=== PATIENT | male | born 1965 | race Caucasian/White ===

== ENCOUNTER 2024-07-22 18:04 | Inpatient (IN) | payer MEDICAID, OTHER ==
[~2024-07-22] VITALS: Ht 185.4 cm; Wt 113.2 kg
--- NOTE | 2024-07-22 18:42 | ED.PDOC ---
GI ASSESSMENT HPI Comments 59y M who presents to the ED for chief complaint of abdominal pain. Pt states he has been having suprapubic abdominal pain since 0300 this AM. Pt states the pain is intermittent, rating the pain 3/10, non-radiating, with no associated exacerbating or relieving factors. Pt has associated nausea but otherwise denies vomiting, diarrhea, fever, cough, chills, dysuria, hematuria, chest pain, headache or dizziness. Pt states he did eat half dozen box of donuts earlier this AM but otherwise denies any recent diet changes or sick contacts. Pt otherwise denies any other symptoms at this time. Time Seen by MD: 18:38 Reviewed Notes: Nurses Notes, Medications, Allergies Allergies: Coded Allergies: NO KNOWN ALLERGIES (Unverified , 07/22/24) Information Source: Patient Mode of Arrival: Ambulatory Brought in by: self Timing: Hours Duration: Since onset Prehospital treatment: None Quality: Sharp Vomitus: None Stool: Normal Severity: Moderate Recent: None Recent Hx of: None Pain Location: Suprapubic Modifying Factors: Food Associated sign and symptoms: Nausea, Abdominal Pain Past Medical History PAST MEDICAL HISTORY: HTN Surgical History: Tonsillectomy Surgical History (Other): R femur Family History Family History: Reviewed,noncontributory to illness Social History Smoker: Non-Smoker Alcohol: Occasionally Drugs: Denies Drug Use Lives In: Home Constitutional: denies: chills, diaphoresis, fatigue, fever, malaise, sweats, weakness, others EENTM: denies: blurred vision, double vision, ear bleeding, ear discharge, ear drainage, ear pain, ear ringing, eye pain, eye redness, hearing loss, mouth pa in, mouth swelling, nasal discharge, nose bleeding, nose congestion, nose pain, photophobia, tearing, throat pain, throat swelling, voice changes, others Respiratory: denies: cough, hemoptysis, orthopnea, SOB at rest, shortness of breath, SOB with excertion, stridor, wheezing, others Cardiovascular: denies: chest pain, dizzy spells, diaphoresis, Dyspnea on exertion, edema, irregular heart beat, left arm pain, lightheadedness, palpitations, PND, syncope, others Gastrointestinal: reports: abdominal pain, nausea; denies: abdomen distended, blood streaked bowels, constipated, diarrhea, dysphagia, difficulty swallowing, hematemesis, melena, poor appetite, poor fluid intake, rectal bleeding, rectal pain, vomiting, others Genitourinary: denies: burning, dysuria, flank pain, frequency, hematuria, incontinence, penile discharge, penile sore, pain, testicle pain, testicle swelling, urgency, others Neurological: denies: dizziness, fainting, headache, left sided numbness, left sided weakness, numbness, paresthesia, pre-existing deficit, right sided numbness, right sided weakness, seizure, speech problems, tingling, tremors, weakness, others Musculoskeletal: denies: back pain, gout, joint pain, joint swelling, muscle pain, muscle stiffness, neck pain, others Integumetry: denies: bruises, change in color, change in hair/nails, dryness, laceration, lesions, lumps, rash, wounds, others Allergic/Immunocompromised: denies: Difficulty Healing, Frequent Infections, Hives, Itching, others Hematologic/Lymphatic: denies: anemia, blood clots, easy bleeding, easy bruising, swollen glands, others Endocrine: denies: excessive hunger, excessive sweating, excessive thirst, excessive urination, flushing, intolerance to cold, intolerance to heat, unexplained weight gain, unexplained weight loss, others Psychiatric: denies: anxiety, bipolar disorder, depression, hopeless, panic disorder, schizophrenia, sleepless, suicidal, others All Other Systems: Reviewed and Negative Physical Exam General Appearance: Moderate Distress HEENT: Normal ENT Inspection, Pharynx Normal, TMs Normal Neck: Full Range of Motion, Non-Tender, Normal, Normal Inspection Respiratory: Chest Non-Tender, Lungs Clear, No Accessory Muscle Use, No Respiratory Distress, Normal Breath Sounds Cardiovascular: No Edema, No JVD, No Murmur, No Gallop, Normal Peripheral Pulses, Regular Rate/Rhythm Breast Exam: Deferred Gastrointestinal: LLQ, No Organomegaly, No Pulsatile Mass, Normal Bowel Sounds, Soft, Suprapubic, Tenderness Genitalia: Deferred Pelvic: Deferred Rectal: Deferred Extremities: No calf tenderness, Normal capillary refill, Normal inspection, Normal range of motion, Non-tender, No pedal edema Musculoskeletal : Apperance: Normal Neurologic: Alert, field contact person II-XII nml as Tested, No Motor Deficits, Normal Affect, Normal Mood, No Sensory Deficits Cerebellar Function: Normal Reflexes: Normal Skin: Dry, Normal Color, Warm Lymphatic: No Adenopathy Was a procedure done? Was a procedure done?: No GI differential Dx Differential Diagnosis: Cholecystitis, Gastritis/PUD, Gastroenteritis, Pancreatitis, Electrolyte Imbalance, Food Poisoning, Bacterial, Viral Other Differential Diagnosis colitis, hepatic steatosis X-Ray, Labs, Meds, VS Vital Signs Date Time Temp Pulse Resp B/P (MAP) Pulse Ox O2 Delivery O2 Flow Rate FiO2 07/22/24 21:21 102 20 155/101 07/22/24 21:15 98.0 102 20 155/101 (119) 97 98.0 07/22/24 21:15 Room Air* 0 21 07/22/24 18:37 98.8 116 18 160/101 (120) 96 98.8 Lab Test 07/22/24 18:56 Range/Units White Blood Count 13.3 H 4.4-10.8 10^3/uL Red Blood Count 4.94 4.5-5.90 10^6/uL Hemoglobin 15.3 13.5-17.5 g/dL Hematocrit 45.1 41.0-53.0 % Mean Corpuscular Volume 91.2 80.0-100.0 fL Mean Corpuscular Hemoglobin 30.9 28.0-32.0 pg Mean Corpuscular Hemoglobin Concent 33.8 32.0-36.0 g/dL Red Cell Distribution Width 14.0 11.8-14.3 % Platelet Count 259 140-450 10^3/uL Mean Platelet Volume 6.7 L 6.9-10.8 fL Neutrophils (%) (Auto) 82.3 H 37.0-80.0 % Lymphocytes (%) (Auto) 10.7 10.0-50.0 % Monocytes (%) (Auto) 6.6 0.0-12.0 % Eosinophils (%) (Auto) 0.1 0.0-7.0 % Basophils (%) (Auto) 0.3 0.0-2.0 % Neutrophils # (Auto) 11.0 H 1.6-8.6 10 ^3/uL Lymphocytes # (Auto) 1.4 0.4-5.4 10 ^3/uL Monocytes # (Auto) 0.9 0-1.3 10 ^3/uL Eosinophils # (Auto) 0 0-0.8 10 ^3/uL Basophils # (Auto) 0 0-0.2 10 ^3/uL Nucleated Red Blood Cells 0.1 % Sodium Level 140 136-145 mmol/L Potassium Level 3.9 3.5-5.1 mmol/L Chloride Level 104 98-107 mmol/L Carbon Dioxide Level 27 20-31 mmol/L Anion Gap 9 5-15 Blood Urea Nitrogen 12 9-23 mg/dL Creatinine 1.24 0.700-1.30 mg/dL Glomerular Filtration Rate Calc 67 >90 mL/min BUN/Creatinine Ratio 9.7 L 10.0-20.0 Serum Glucose 94 74-106 mg/dL Calcium Level 9.1 8.7-10.4 mg/dL Total Bilirubin 0.7 0.2-1.0 mg/dL Aspartate Amino Transferase (AST) 16 13-40 U/L Alanine Aminotransferase (ALT) 29 7-40 U/L Alkaline Phosphatase 86 46-116 U/L Total Protein 7.7 5.7-8.2 g/dL Albumin 4.9 H 3.2-4.8 g/dL Lipase 33 12-53 U/L Current Medications Medications (Trade) Dose Ordered Sig/Liliane Route Start Time Stop Time Status Last Admin Sodium Chloride 1,000 ml @ 1,000 mls/hr Q1H ONCE IVB 07/22/24 18:45 07/22/24 19:44 DC 07/22/24 21:20 Ondansetron HCl (Zofran) 4 mg ONCE ONCE IV 07/22/24 20:45 07/22/24 20:46 DC 07/22/24 21:21 Morphine Sulfate 4 mg ONCE ONCE IV 07/22/24 20:45 07/22/24 20:46 DC 07/22/24 21:21 Metronidazole 100 ml @ 100 mls/hr ONCE ONCE IV 07/22/24 20:45 07/22/24 21:44 DC 07/22/24 21:25 Exam: CT CT AB PEL WO CON-NO ORAL OR IV IMPRESSION: 1. 1. CT findings of hepatic steatosis 2. 2. Findings of non complicated sigmoid diverticulitis. No free air no free fluid. 3. HS:Y IV Hep-Lock was established The patient was given a 1 L bolus of normal saline The patient was given Zofran 4 mg IV push for the nausea The patient was given morphine 4 mg IV push for the pain Because of the findings of diverticulitis, the patient was placed on Flagyl IV piggyback The patient's CBC shows an elevated white blood cell count of 13.3 The rest of the CBC is within normal limits The chemistry panel is within normal limits. At this time the patient was being admitted Images Reviewed?: Images reviewed and evaluated by me Time of 1ST Reevaluation: 19:10 Reevaluation 1ST: Unchanged Patient Education/Counseling: Diagnosis, Treatment, Prognosis Family Education/Counseling: No Family Present Additional Information -Reviewed patient's previous visit(s): - The following tests were ordered, and results were reviewed by me: cbc, cmp, lipase, ua, ct abd pelvis non-con, - Additional information was gathered from interviewing the following independent Historian: pt - I reviewed and agreed with the following test results read by other provider: radiologist - I discussed treatments and results with medical personnel and: pt Comprehensive systems review obtained and negative except for what is stated in the HPI. Departure 1 Departure Time of Disposition: 21:54 Impression: Primary Impression: Intractable abdominal pain Additional Impression: Acute diverticulitis Disposition: ADMITTED INPATIENT Admit to: Med Surg Condition: Fair Critical Care Note Critical Care Time?: No Stability Stability form required: Yes Unstable for transfer: ED Physician Assesment (Clinical assesment) Heart Score Heart Score: Heart Score Response (Comments) Value History N/A 0 EKG N/A 0 Age N/A 0 Risk Factors N/A 0 Troponin N/A 0 Total 0 I personally scribed for BRI ZHENG MD ([email or web address]) on 07/22/24 at 18:42. Electronically submitted by Zoey QUINTANA). I personally scribed for BRI ZHENG MD ([email or web address]) on 07/22/24 at 19:23. Elec tronically submitted by Zoey QUINTANA). BRI ZHENG MD July 22, 2024 18:42
[2024-07-22] MEDS: ONDANSETRON HCL 4 MG/2 ML VIAL IV ONE ×2 (18:45→21:21)
[2024-07-22] MEDS: MORPHINE SULFATE 4 MG/ML SYR/VIAL IV ONE ×2 (18:45→21:21)
--- NOTE | 2024-07-22 19:11 | DVH ---
Exam: CT CT AB PEL WO CON-NO ORAL OR IV History: pain Comparison Study: None TECHNIQUE: Multidetector CT of the abdomen was performed from lung bases to pubic symphysis. Imaging was performed without IV contrast. Axial, coronal and sagittal multiplanar reformats were obtained fr om the axial data set by the technologist. Radiation Dose Information: CT Dose: CTDI volume is 23.66 mGy. Dose-length product is 1408.62 mGy*cm FINDINGS: Evaluation of solid organs is limited due to lack of intravenous contrast use. Findings: Lung Bases: No acute or significant lung base finding. Normal heart size. No pleural or pericardial effusion. Liver: The liver is normal in size. No focal lesions. CT findings suggesting hepatic steatosis. Gallbladder and Biliary Tree: Unremarkable Spleen: Unremarkable Pancreas: The pancreas is grossly normal in appearance. Adrenal Glands: Unremarkable Kidneys: Kidneys are grossly normal without calculi or hydronephrosis. Bladder: Grossly unremarkable for degree of distention. Bowel: The stomach is grossly normal in appearance. Small bowel and colon are normal in caliber and d istribution. There is some mild stranding in the surrounding fat of the sigmoid colon with sigmoid di verticuli. Findings may represent non complicated diverticulitis The appendix is not visualized; how ever, no secondary findings of acute appendicitis identified. Ascites: Absent Lymphadenopathy: No mesenteric, retroperitoneal or periportal lymphadenopathy. Abdominal Wall and Mesentery: Unremarkable. Vasculature: The visualized abdominal aorta is normal in size and caliber. Evaluation of abdominal a nd pelvic vessels is limited due to lack of intravenous contrast. Pelvic Organs: Unremarkable Musculoskeletal: No aggressive focal bony lesions, acute fractures or dislocation. Soft tissues: Unremarkable IMPRESSION: 1. 1. CT findings of hepatic steatosis 2. 2. Findings of non complicated sigmoid diverticulitis. No free air no free fluid. 3. HS:Y Radiation optimization: All CT scans at this facility use at least one of these dose optimization trell hniques: automated exposure control mA and/or kV adjustment per patient size (includes targeted exam s where dose is matched to clinical indication) or iterative reconstruction.
[2024-07-22 19:15] LABS: Basophils # (auto) 0 10 ^3/uL (0-0.2); Basophils % (auto) 0.3 % (0.0-2.0); Eosinophils # (auto) 0 10 ^3/uL (0-0.8); Eosinophils % (auto) 0.1 % (0.0-7.0); Hematocrit 45.1 % (41.0-53.0); Hemoglobin 15.3 g/dL (13.5-17.5); Lymphocytes # (auto) 1.4 10 ^3/uL (0.4-5.4); Lymphocytes % (auto) 10.7 % (10.0-50.0); Mean Corpuscular Hemoglobin 30.9 pg (28.0-32.0); Mean Corpuscular Hgb Conc. 33.8 g/dL (32.0-36.0); Mean Corpuscular Volume 91.2 fL (80.0-100.0); Monocytes # (auto) 0.9 10 ^3/uL (0-1.3); Monocytes % (auto) 6.6 % (0.0-12.0); Neutrophils % (auto) 82.3 % (37.0-80.0); Nucleated Red Blood Cells % 0.1 %; Platelet Count (auto) 259 10^3/uL (140-450); Red Blood Cells 4.94 10^6/uL (4.5-5.90); White Blood Cell 13.3 10^3/uL (4.4-10.8)
[2024-07-22 19:24] LABS: Alanine Aminotransferase 29 U/L (7-40); Alkaline Phosphatase 86 U/L (46-116); Anion Gap 9 (5-15); Aspartate Aminotransferase 16 U/L (13-40); BUN/Creatinine Ratio 9.7 (10.0-20.0); Blood Urea Nitrogen 12 mg/dL (9-23); Calcium 9.1 mg/dL (8.7-10.4); Carbon Dioxide 27 mmol/L (20-31); Chloride 104 mmol/L (98-107); Glucose 94 mg/dL (74-106); Lipase 33 U/L (12-53); Potassium 3.9 mmol/L (3.5-5.1); Sodium 140 mmol/L (136-145); Total Protein 7.7 g/dL (5.7-8.2)
[2024-07-22 19:25] LABS: Bilirubin, Total 0.7 mg/dL (0.2-1.0)
[2024-07-22 20:01] LABS: Albumin 4.9 g/dL (3.2-4.8)
[2024-07-22] MEDS: SODIUM CHLORIDE 0.9% 1,000 ML IVB ONE ×2 (21:20→22:46)
[2024-07-22] MEDS: metroNIDAZOLE 500MG/100ML 100 ML IV ONE (21:25)
[2024-07-22] MEDS ORDERED: ONDANSETRON HCL 4 MG/2 ML VIAL IV PRN (21:45)
[2024-07-22] MEDS ORDERED: NITROGLYCERIN 0.4 MG SL TAB SL PRN (21:45)
[2024-07-22] MEDS ORDERED: MORPHINE SULFATE INJ 2 MG/ml SYRG IV PRN (21:45)
[2024-07-22] MEDS ORDERED: metroNIDAZOLE 500MG/100ML 100 ML IV ONE (22:00)
--- NOTE | 2024-07-22 22:22 | DVH ---
Date: 07/22/2024 10:02 PM Examination: XY KUB ABDOMEN SINGLE VIEW History: rule out SBO Comparison: None TECHNIQUE: Frontal views of the abdomen was obtained. FINDINGS: Bowel gas pattern is unremarkable. Nondilated small bowel. The lung bases are unremarkable. No acute osseous abnormality identified. IMPRESSION: 1. Nonobstructive bowel gas pattern. HS:Y
--- NOTE | 2024-07-22 22:36 | DVHHP2 ---
History of Present Illness History of Present Illness Patient is 59 years old male with past medical history of hypertension, prediabetes, obesity came with a complaint of abdominal pain. As per patient patient started having abdominal pain 3:30 a.m. today, sudden onset, sharp, 10/10, radiating to the back, intermittent in nature, some decrease sudden movement. Patient also endorsed some nausea but no vomiting. Patient reported he had same kind of pain six-month before but which got better spontaneously with a 4-6 hours, did not seek any medical attention. Patient was endorsed some constipation but had a bowel movement yesterday and also passing gas last passing gas was couple of days before. Patient denied any dysuria, fever, diarrhea, vomiting, acute joint pain or swelling, unusual food arrival regular schedule. Initial lab workup revealed steatosis WBC 13.3, neutrophil 82.3, lipase with a normal limit,. HGB A1c 5.6, TSH 2.21. CT findings of hepatic steatosis 2. Findings of non complicated sigmoid diverticulitis. X-ray KUB- Nonobstructive bowel gas pattern. Past Surgical History none Family History Father had hypertension Past Social History Patient lives with 2 sons, occasional alcoholic, denies smoking or drug abuse Home medications--patient hypertensive but it denied taking any med Review of Systems Review of Systems Allergy- NKDA Patient was seen today at the bedside. Cardiovascular- deny acute chest pain or shortness of breath or cough or palpitation Respiratory denies cough or short of breath or wheezing Gastrointestinal- denies any rectal bleeding or vomiting Musculoskeletal-denies acute joint swelling or tenderness or redness Neurological- denies acute dysarthria, dysphagia, change in vision Psychiatry- denies depression or SI or HI Skin- denies acute rash or purpura Allergies: Coded Allergies: NO KNOWN ALLERGIES (Unverified , 07/22/24) Medications Current Medications Medications Dose Ordered Sig/Liliane Route Start Time Stop Time Status Last Admin Dose Admin Sodium Chloride 10 ml Q8HR IV 07/22/24 22:00 Ondansetron HCl 4 mg Q4HP PRN IV 07/22/24 21:45 Acetaminophen 650 mg Q6HP PRN PO 07/22/24 21:45 Morphine Sulfate 2 mg Q4HPRN PRN IV 07/22/24 21:45 Nitroglycerin 0.4 mg Q5MINP PRN SL 07/22/24 21:45 Morphine Sulfate 2 mg Q30M PRN IV 07/22/24 21:45 Ceftriaxone Sodium 50 ml @ 100 mls/hr DAILY@09 IV 07/23/24 09:00 UNV Metronidazole 100 ml @ 100 mls/hr Q8HR IV 07/22/24 22:00 UNV Pantoprazole Sodium 40 mg DAILY IV 07/23/24 10:00 UNV Dextrose/Sodium Chloride 1,000 ml @ 150 mls/hr Q6H40M IV 07/22/24 22:00 UNV Enoxaparin Sodium 40 mg DAILY SC 07/23/24 10:00 UNV Exam Vital Signs Vital Signs Date Time Temp Pulse Resp B/P (MAP) Pulse Ox O2 Delivery O2 Flow Rate FiO2 07/22/24 21:21 102 20 155/101 07/22/24 21:15 98.0 97 98.0 07/22/24 21:15 Room Air* 0 21 Exam General examination- , alert, oriented, HEENT- PEERLA, no acute nasal discharge Cardiovascular- S1-S2 audible, rate and rhythm regular, no murmur Respiratory- CTAB, no wheeze or rhonchi Gastrointestinal-left lower abdominal tenderness++, bowel sound+. Nondistended Musculoskeletal-no acute joint swelling or tenderness or redness Lower extremity- no leg edema Neurological- cranial nerves intact, no acute dysarthria or dysphagia Psychiatry- denies depression or SI or HI Skin- no acute rash or purpura Labs/Xrays Labs Test 07/22/24 18:56 Range/Units White Blood Count 13.3 H 4.4-10.8 10^3/uL Red Blood Count 4.94 4.5-5.90 10^6/uL Hemoglobin 15.3 13.5-17.5 g/dL Hematocrit 45.1 41.0-53.0 % Mean Corpuscular Volume 91.2 80.0-100.0 fL Mean Corpuscular Hemoglobin 30.9 28.0-32.0 pg Mean Corpuscular Hemoglobin Concent 33.8 32.0-36.0 g/dL Red Cell Distribution Width 14.0 11.8-14.3 % Platelet Count 259 140-450 10^3/uL Mean Platelet Volume 6.7 L 6.9-10.8 fL Neutrophils (%) (Auto) 82.3 H 37.0-80.0 % Lymphocytes (%) (Auto) 10.7 10.0-50.0 % Monocytes (%) (Auto) 6.6 0.0-12.0 % Eosinophils (%) (Auto) 0.1 0.0-7.0 % Basophils (%) (Auto) 0.3 0.0-2.0 % Neutrophils # (Auto) 11.0 H 1.6-8.6 10 ^3/uL Lymphocytes # (Auto) 1.4 0.4-5.4 10 ^3/uL Monocytes # (Auto) 0.9 0-1.3 10 ^3/uL Eosinophils # (Auto) 0 0-0.8 10 ^3/uL Basophils # (Auto) 0 0-0.2 10 ^3/uL Nucleated Red Blood Cells 0.1 % Sodium Level 140 136-145 mmol/L Potassium Level 3.9 3.5-5.1 mmol/L Chloride Level 104 98-107 mmol/L Carbon Dioxide Level 27 20-31 mmol/L Anion Gap 9 5-15 Blood Urea Nitrogen 12 9-23 mg/dL Creatinine 1.24 0.700-1.30 mg/dL Glomerular Filtration Rate Calc 67 >90 mL/min BUN/Creatinine Ratio 9.7 L 10.0-20.0 Serum Glucose 94 74-106 mg/dL Calcium Level 9.1 8.7-10.4 mg/dL Total Bilirubin 0.7 0.2-1.0 mg/dL Aspartate Amino Transferase (AST) 16 13-40 U/L Alanine Aminotransferase (ALT) 29 7-40 U/L Alkaline Phosphatase 86 46-116 U/L Total Protein 7.7 5.7-8.2 g/dL Albumin 4.9 H 3.2-4.8 g/dL Lipase 33 12-53 U/L Assessment/Plan Assessment/Plan Assessment and plan Intractable lower abdominal pain likely due to acute diverticulitis Acute diverticulitis Hepatic steatosis Leukocytosis likely due to diverticulitis Hypertension not on any medication Obesity Alcoholism WBC 13.3, neutrophil 82.3, lipase with a normal limit,. CT findings of hepatic steatosis Findings of non complicated sigmoid diverticulitis. Plan NPO Ceftriaxone and metronidazole as prescribed IV fluid Fluid as prescribed Pantoprazole as prescribed Zofran p.r.n. as prescribed Ordered x-ray KUB to rule out SBO Goals of care, Code status ; discussed with >15 minutes PUD prophylaxis: Pantoprazole DVT prophylaxis: Lovenox Plan discussed with Dr. Smith , nursing staff, Total time spent on patient evaluation, chart review, assessment and plan, discussion discussion >35 minutes Plan discussed with: Patient, Other (RN) My Orders Orders - DONNA,JEANINE RESIDENT Procedure Category Date Status Time Admit ADMIT 07/22/24 Transmitted 21:37 Code Status CODE 07/22/24 Transmitted 21:37 Sodium Chloride Lock PHA 07/22/24 In Process (Saline Lock Ns) 22:00 Ondansetron Hcl PHA 07/22/24 In Process (Zofran) 21:45 Complete Blood Count LAB 07/23/24 Verified 04:00 Comprehensive LAB 07/23/24 Verified Metabolic Panel 04:00 Npo (Nothing By DIET 07/23/24 Transmitted Mouth) Diet Breakfast Acetaminophen Tablet PHA 07/22/24 In Process (Tylenol Tablet) 21:45 Morphine Sulfate PHA 07/22/24 In Process Injection 21:45 Nitroglycerin PHA 07/22/24 In Process Sublingual (Ntrostat 21:45 Morphine Sulfate PHA 07/22/24 In Process Injection 21:45 Oxygen By Nasal RT 07/22/24 Transmitted Cannula 21:37 Stat Ekg For Chest LINDA 07/22/24 In Process Pain 21:37 Notify Md Of Changes LINDA 07/22/24 In Process From Base 21:37 Digital Marketing Apprentice For LINDA 07/22/24 In Process 24 Hours 21:37 Emergency Dysrhythmia LINDA 07/22/24 In Process Protocol 21:37 Rhythm Strips Once LINDA 07/22/24 In Process Every Shift 21:37 Ceftriaxone 1gm/50ml PHA 07/23/24 Logged D5w (Rocephin) 09:00 Ceftriaxone 1gm/50ml PHA 07/22/24 Logged D5w (Rocephin) 22:00 Metronidazole PHA 07/22/24 Logged 500mg/100ml (Flagyl 22:00 Metronidazole PHA 07/22/24 Logged 500mg/100ml (Flagyl 22:00 Pantoprazole PHA 07/22/24 Logged (Protonix) 22:00 Pantoprazole PHA 07/23/24 Logged (Protonix) 10:00 D5w/Sod Chlo 0.9% PHA 07/22/24 Logged (D5w Ns 0.9%) 22:00 Enoxaparin Sodium PHA 07/22/24 Logged (Lovenox) 22:00 Enoxaparin Sodium PHA 07/23/24 Logged (Lovenox) 10:00 Date of Service: July 22, 2024 Billing Provider: GABRIEL SMITH MD Common Visit Codes: [id number] INP/OBS CARE (HIGH) Secondary Visit Codes: [id number] CARE PLAN 30 MINUTES JEANINE THOMPSON RESIDENT July 22, 2024 22:36
[2024-07-22 23:10] VITALS: BP 154/89; PULSE 91; RESP 18; TEMP 98.6; O2SAT 99
[2024-07-22] MEDS: PANTOPRAZOLE 40 MG/10 ML VIAL INJ IV ONE (23:10)
[2024-07-22] MEDS: ENOXAPARIN SOD 40 MG/0.4 ML SYRINGE SC ONE (23:11)
[2024-07-22] MEDS: SODIUM CHLOR 0.9% PF (SALINE LOCK) 10ML VIAL/SYR IV SCH (23:11)
[2024-07-22] MEDS: cefTRIAXone 1GM/50ML D5W 50 ML IV ONE (23:11)
[2024-07-22 23:30] VITALS: PULSE 87; RESP 15; O2SAT 96
[2024-07-23 00:09] LABS: Urine Bacteria None Seen /hpf (None Seen)
[2024-07-23] MEDS: D5W/SOD CHLO 0.9% 1,000 ML IV SCH (00:24)
[2024-07-23 00:36] LABS: Urine Blood Negative /uL (Negative); Urine Clarity Clear (Clear); Urine Color Light-Yellow (Yellow); Urine Mucus FEW (None Seen); Urine Protein, UAD Negative (Negative); Urine Specific Gravity 1.023 (1.001-1.035); Urine Squamous Epithelial Cell None Seen /hpf (<5); Urine Urobilinogen Normal (Negative); Urine WBC < 1 /HPF (0-3); Urine pH 5.5 (5.0-9.0)
[2024-07-23] MEDS: MORPHINE SULFATE INJ 2 MG/ml SYRG IV PRN (01:28)
[2024-07-23 01:34] LABS: Opiate Scree,Urine Pos (NEGATIVE)
[2024-07-23 01:41] LABS: Amphetamine Screen, Urine Neg (NEGATIVE); Barbiturate Scree,Urine Neg (NEGATIVE); Benzodiazephine Screen, Urine Neg (NEGATIVE); Phencyclidine Screen, Urine Neg (NEGATIVE)
[2024-07-23 01:42] LABS: Cannabinoid Screen, Urine Neg (NEGATIVE); Cocaine Screen, Urine Neg (NEGATIVE)
[2024-07-23 05:00] VITALS: BP 157/93; PULSE 93; RESP 15; TEMP 99.4; O2SAT 95
[2024-07-23] MEDS: metroNIDAZOLE 500MG/100ML 100 ML IV SCH (06:14)
[2024-07-23] MEDS ORDERED: hydrALAZINE HCL 20 MG/ML VL IV PRN (06:15)
[2024-07-23] MEDS: hydrALAZINE HCL 20 MG/ML VL IV ONE (06:35)
[2024-07-23 07:28] LABS: Basophils # (auto) 0.1 10 ^3/uL (0-0.2); Basophils % (auto) 0.8 % (0.0-2.0); Eosinophils # (auto) 0 10 ^3/uL (0-0.8); Eosinophils % (auto) 0.2 % (0.0-7.0); Hematocrit 41.4 % (41.0-53.0); Hemoglobin 14.2 g/dL (13.5-17.5); Lymphocytes % (auto) 9.4 % (10.0-50.0); Mean Corpuscular Hemoglobin 31.4 pg (28.0-32.0); Mean Corpuscular Hgb Conc. 34.3 g/dL (32.0-36.0); Mean Corpuscular Volume 91.7 fL (80.0-100.0); Monocytes # (auto) 0.8 10 ^3/uL (0-1.3); Monocytes % (auto) 7.2 % (0.0-12.0); Neutrophils # (auto) 8.8 10 ^3/uL (1.6-8.6); Neutrophils % (auto) 82.4 % (37.0-80.0); Nucleated Red Blood Cells % 0.1 %; Platelet Count (auto) 192 10^3/uL (140-450); Red Blood Cells 4.51 10^6/uL (4.5-5.90); Red Cell Distribution Width 13.7 % (11.8-14.3); White Blood Cell 10.7 10^3/uL (4.4-10.8)
[2024-07-23 07:37] LABS: Alanine Aminotransferase 23 U/L (7-40); Albumin 4.2 g/dL (3.2-4.8); Alkaline Phosphatase 78 U/L (46-116); Anion Gap 9 (5-15); Aspartate Aminotransferase 14 U/L (13-40); BUN/Creatinine Ratio 11.7 (10.0-20.0); Blood Urea Nitrogen 14 mg/dL (9-23); Calcium 9.2 mg/dL (8.7-10.4); Carbon Dioxide 26 mmol/L (20-31); Chloride 104 mmol/L (98-107); Potassium 4.1 mmol/L (3.5-5.1); Sodium 139 mmol/L (136-145); Total Protein 6.5 g/dL (5.7-8.2)
[2024-07-23 07:38] LABS: Bilirubin, Total 0.9 mg/dL (0.2-1.0)
[2024-07-23 07:44] LABS: Glucose 127 mg/dL (74-106)
[2024-07-23] MEDS: PANTOPRAZOLE 40 MG/10 ML VIAL INJ IV SCH (08:53)
[2024-07-23] MEDS: cefTRIAXone 1GM/50ML D5W 50 ML IV SCH (08:53)
[2024-07-23] MEDS: ENOXAPARIN SOD 40 MG/0.4 ML SYRINGE SC SCH (08:53)
[2024-07-23 08:57] VITALS: BP 157/92; PULSE 101; RESP 17; TEMP 98; O2SAT 97
[2024-07-23 12:32] VITALS: BP 133/70; PULSE 97; RESP 17; TEMP 99.1; O2SAT 97
[2024-07-23] MEDS: LOSARTAN POTASSIUM 50 MG TAB PO ONE (12:40)
[2024-07-23] MEDS ORDERED: MORPHINE SULFATE INJ 2 MG/ml SYRG IV PRN (13:15)
[2024-07-23 16:48] VITALS: BP 134/77; PULSE 89; RESP 17; TEMP 100.3; O2SAT 96
--- NOTE | 2024-07-23 17:45 | DVHPNRES ---
Progress Note Date Seen: July 23, 2024 Resident Creating Document: SRIRAM CARPENTER RESIDENT Medical Necessity Reason Pt with a Central, PICC or Fol: No Subjective Review of Systems Patient is 59 years old male with past medical history of hypertension, prediabetes, obesity came with a complaint of abdominal pain. As per patient patient started having abdominal pain 3:30 a.m. today, sudden onset, sharp, 10/10, radiating to the back, intermittent in nature, some decrease sudden movement. Patient also endorsed some nausea but no vomiting. Patient reported he had same kind of pain six-month before but which got better spontaneously with a 4-6 hours, did not seek any medical attention. Patient was endorsed some constipation but had a small bowel movement yesterday and also passing gas. Patient denied any dysuria, fever, diarrhea, vomiting, acute joint pain or swelling, unusual food arrival regular schedule. Initial lab workup revealed steatosis WBC 13.3, neutrophil 82.3, lipase with a normal limit,. HGB A1c 5.6, TSH 2.21. CT findings of hepatic steatosis 2. Findings of non complicated sigmoid diverticulitis. X-ray KUB-Nonobstructive bowel gas pattern. Past medical history: as per HPI Past Surgical History: none Social History: Patient lives with 2 sons, occasional alcoholic, denies smoking or drug abuse Home medications: patient hypertensive but it denied taking any med Review of systems patient seen and examined at the bedside reported of abdominal pain in the left lower quadrant no bowel movement but passing gas Objective vital signs Vital Sign Date Time Temp Pulse Resp B/P (MAP) Pulse Ox O2 Delivery O2 Flow Rate FiO2 07/23/24 16:48 100.3 89 17 134/77 (96) 96 100.3 07/23/24 08:00 Room Air* 0 21 Total Intake and Output 07/22/24 07/22/24 07/23/24 15:00 23:00 07:00 Intake Total 0 ml Balance 0 ml medications Current Medications Medications Dose Ordered Sig/Liliane Route Start Time Stop Time Status Last Admin Dose Admin Sodium Chloride 10 ml Q8HR IV 07/22/24 22:00 07/23/24 14:29 10 ML Ondansetron HCl 4 mg Q4HP PRN IV 07/22/24 21:45 Acetaminophen 650 mg Q6HP PRN PO 07/22/24 21:45 Ceftriaxone Sodium 50 ml @ 100 mls/hr DAILY@09 IV 07/23/24 09:00 07/23/24 08:53 100 MLS/HR Metronidazole 100 ml @ 100 mls/hr Q8HR IV 07/23/24 06:00 07/23/24 14:25 100 MLS/HR Pantoprazole Sodium 40 mg DAILY IV 07/23/24 10:00 07/23/24 08:53 40 MG Enoxaparin Sodium 40 mg DAILY SC 07/23/24 10:00 07/23/24 08:53 40 MG Morphine Sulfate 2 mg Q6HPRN PRN IV 07/23/24 13:15 Ketorolac Tromethamine 15 mg Q6HPRN PRN IV 07/23/24 13:15 07/28/24 13:14 Examination Gen - no pallor, no icterus, no cyanosis, no clubbing, no LAD, no edema . Skin - Patients skin is warm and dry.. HEENT - normocephalic, atraumatic, moist mucous membranes. Neck - full ROM, no LAD, JVP waveform is not seen. Pulmonary - B/L vesicular breath sounds. no crackles , no wheezing, no stridor. cardiovascular - normal S1,S2 heard. no murmurs heard. GI - soft abdomen with tenderness to palpation in the left lower quadrant. no hepatospleenomegaly. bowel sounds normoactive Neurological - Patient is A/O X 3 . Bilateral upper extremity strength 5/5, bilateral lower extremity strength 5/5, no facial droop, normal speech, no tremor, no sensory deficiets. laboratory and microbiology Laboratory Tests 07/23/24 06:41 Test 07/23/24 06:41 Range/Units Serum Glucose 127 H 74-106 mg/dL Problem List/Assessment/Plan Problem List/Assessment/Plan Intractable lower abdominal pain likely due to acute diverticulitis Acute uncomplicated diverticulitis Hepatic steatosis Leukocytosis likely due to diverticulitis - CT Abd/pelvis shows fat stranding in the sigmoid colon - IV antibiotics - IV fluids Hypertensive heart disease - started on losartan 50mg daily Goals of care of discussed with the patient for over 27 mins. Full Code PUD prophylaxis: Pantoprazole DVT prophylaxis: Lovenox Plan discussed with Dr. Smith Plan discussed with: Patient My Orders My Orders Orders - JHAJJ,SARPUNEET RESIDENT Procedure Category Date Status Time Clear Liq Diet DIET 07/23/24 Transmitted Lunch Morphine Sulfate PHA 07/23/24 In Process Injection 13:15 Ketorolac Injection PHA 07/23/24 In Process (Toradol Injection) 13:15 Date of Service: July 23, 2024 Billing Provider: KASIA SMITH MD Common Visit Codes: [id number] INP/OBS CARE(HIGH) SRIRAM CARPENTER RESIDENT July 23, 2024 17:45 KASIA SMITH MD July 24, 2024 15:47
[2024-07-23] MEDS: ACETAMINOPHEN 325 MG TAB PO PRN (18:59)
[2024-07-23] MEDS: SODIUM CHLORIDE 0.9% 1,000 ML IV ONE (20:15)
[2024-07-23] MEDS: POLYETHYLENE GLYCOL 17 GM PWDR PO ONE (20:15)
[2024-07-23 21:00] VITALS: BP 140/84; PULSE 94; RESP 18; TEMP 99.6; O2SAT 94
[2024-07-24] VITALS (7 sets, daily range): BP systolic 107–154; BP diastolic 53–100; PULSE 74–88; RESP 16–19; TEMP 97.8–100.5; O2SAT 94–98
[2024-07-24 07:22] LABS: Basophils # (auto) 0 10 ^3/uL (0-0.2); Basophils % (auto) 0.4 % (0.0-2.0); Eosinophils # (auto) 0.1 10 ^3/uL (0-0.8); Eosinophils % (auto) 0.9 % (0.0-7.0); Hematocrit 37.3 % (41.0-53.0); Hemoglobin 13.1 g/dL (13.5-17.5); Lymphocytes # (auto) 0.9 10 ^3/uL (0.4-5.4); Lymphocytes % (auto) 10.2 % (10.0-50.0); Mean Corpuscular Hgb Conc. 35.1 g/dL (32.0-36.0); Mean Corpuscular Volume 91.3 fL (80.0-100.0); Monocytes # (auto) 0.7 10 ^3/uL (0-1.3); Monocytes % (auto) 7.4 % (0.0-12.0); Neutrophils # (auto) 7.4 10 ^3/uL (1.6-8.6); Neutrophils % (auto) 81.1 % (37.0-80.0); Platelet Count (auto) 187 10^3/uL (140-450); Red Blood Cells 4.09 10^6/uL (4.5-5.90); Red Cell Distribution Width 13.6 % (11.8-14.3); White Blood Cell 9.1 10^3/uL (4.4-10.8)
[2024-07-24 07:32] LABS: Calcium 9.3 mg/dL (8.7-10.4); Chloride 101 mmol/L (98-107); Potassium 3.8 mmol/L (3.5-5.1)
[2024-07-24 07:33] LABS: Anion Gap 9 (5-15); Carbon Dioxide 26 mmol/L (20-31); Sodium 136 mmol/L (136-145)
[2024-07-24 07:38] LABS: BUN/Creatinine Ratio 7.4 (10.0-20.0)
[2024-07-24 07:46] LABS: Blood Urea Nitrogen 9 mg/dL (9-23); Glucose 119 mg/dL (74-106)
[2024-07-24] MEDS: KETOROLAC TROMETH 30 MG/ML 1ML VIAL IV PRN (07:50)
[2024-07-24] MEDS: LOSARTAN POTASSIUM 50 MG TAB PO SCH (08:06)
[2024-07-24] MEDS: ACETAMINOPHEN 325 MG TAB PO PRN (08:07)
--- NOTE | 2024-07-24 17:16 | DVHPNRES ---
Progress Note Date Seen: July 24, 2024 Resident Creating Document: BRENNA MARTIN RESIDENT Medical Necessity Reason Pt with a Central, PICC or Fol: No Subjective Review of Systems Patient seen and examined at bedside. No new complaint Mild generalized abdominal pain No fever Had bowel movement No any other new complaint Objective vital signs Vital Sign Date Time Temp Pulse Resp B/P (MAP) Pulse Ox O2 Delivery O2 Flow Rate FiO2 07/24/24 16:41 97.9 82 16 146/82 (103) 97 97.9 07/24/24 08:00 Room Air* 0 21 Total Intake and Output 07/23/24 07/23/24 07/24/24 15:00 23:00 07:00 Intake Total 150 ml 510 ml 400 ml Balance 150 ml 510 ml 400 ml medications Current Medications Medications Dose Ordered Sig/Liliane Route Start Time Stop Time Status Last Admin Dose Admin Sodium Chloride 10 ml Q8HR IV 07/22/24 22:00 07/23/24 22:00 10 ML Ondansetron HCl 4 mg Q4HP PRN IV 07/22/24 21:45 Ceftriaxone Sodium 50 ml @ 100 mls/hr DAILY@09 IV 07/23/24 09:00 07/24/24 08:16 100 MLS/HR Metronidazole 100 ml @ 100 mls/hr Q8HR IV 07/23/24 06:00 07/24/24 13:18 100 MLS/HR Pantoprazole Sodium 40 mg DAILY IV 07/23/24 10:00 07/24/24 08:07 40 MG Enoxaparin Sodium 40 mg DAILY SC 07/23/24 10:00 07/24/24 08:07 40 MG Morphine Sulfate 2 mg Q6HPRN PRN IV 07/23/24 13:15 Ketorolac Tromethamine 15 mg Q6HPRN PRN IV 07/23/24 13:15 07/28/24 13:14 07/24/24 07:50 15 MG Acetaminophen 650 mg Q6HP PRN PO 07/23/24 20:15 07/24/24 08:07 650 MG Losartan Potassium 50 mg DAILY PO 07/24/24 10:00 07/24/24 08:06 50 MG Examination General Appearance: Cooperative. Well developed. Well nourished. NAD Head Exam: Normal inspection Neck Exam: Normal inspection. Non-tender. Normal alignment Pulmonary/Respiratory: Chest non-tender. Clear bilateral breath sounds Cardiovascular/Chest: Regular rate and rhythm. No murmurs. No JVD. Peripheral Pulses: 2+ Radial (R). 2+ Radial (L). 2+ Pedal (R). 2+ Pedal (L) Abdominal Exam: Normal bowel sounds. Soft. Nontender. No hepatospenomegaly. No masses Ankle Exam: Negative ankle edema Lower extremities: Negative lower extremity edema Neuro/Mental Status: A&O x4. Coherent Thoughts/Psych: Normal thought pattern. Appropriate mood and affect. Good judgement and insight Appearance: In no acute distress Skin Exam: Normal inspection. Normal color. Warm. Dry laboratory and microbiology Laboratory Tests 07/24/24 06:36 Test 07/24/24 06:36 Range/Units Serum Glucose 119 H 74-106 mg/dL Problem List/Assessment/Plan Problem List/Assessment/Plan Intractable lower abdominal pain likely due to acute diverticulitis Sepsis due to Acute uncomplicated diverticulitis Hepatic steatosis - CT Abd/pelvis shows fat stranding in the sigmoid colon - IV antibiotics with ceftriaxone and metronidazole - IV fluids -clear liquid diet -avoid constipation Hypertensive heart disease - started on losartan 50mg daily Obesity BMI 33.1 kilogram/M 2 -counseled on lifestyle modification, regular exercise, healthy diet options. Goals of care of discussed with the patient for over 27 mins. Full Code PUD prophylaxis: Pantoprazole DVT prophylaxis: Lovenox Plan discussed with Dr. Smith Plan discussed with: Patient, Other (RN) Date of Service: July 24, 2024 Billing Provider: KASIA SMITH MD Common Visit Codes: [id number] INP/OBS CARE(HIGH) BRENNA MARTIN RESIDENT July 24, 2024 17:16 KASIA SMITH MD July 26, 2024 14:13
[2024-07-25 01:00] VITALS: BP 121/79; PULSE 74; RESP 18; TEMP 98.4; O2SAT 96
[2024-07-25 05:00] VITALS: BP 137/79; PULSE 71; RESP 19; TEMP 98.8; O2SAT 97
[2024-07-25 07:13] LABS: Basophils # (auto) 0 10 ^3/uL (0-0.2); Basophils % (auto) 0.6 % (0.0-2.0); Eosinophils # (auto) 0.2 10 ^3/uL (0-0.8); Eosinophils % (auto) 2.8 % (0.0-7.0); Hematocrit 40.8 % (41.0-53.0); Hemoglobin 14.1 g/dL (13.5-17.5); Lymphocytes # (auto) 1.1 10 ^3/uL (0.4-5.4); Mean Corpuscular Hemoglobin 31.3 pg (28.0-32.0); Mean Corpuscular Hgb Conc. 34.5 g/dL (32.0-36.0); Mean Corpuscular Volume 90.7 fL (80.0-100.0); Monocytes # (auto) 0.5 10 ^3/uL (0-1.3); Monocytes % (auto) 7.3 % (0.0-12.0); Neutrophils # (auto) 5.2 10 ^3/uL (1.6-8.6); Neutrophils % (auto) 73.3 % (37.0-80.0); Nucleated Red Blood Cells % 0.1 %; Platelet Count (auto) 187 10^3/uL (140-450); Red Cell Distribution Width 13.2 % (11.8-14.3)
[2024-07-25 07:30] LABS: Anion Gap 8 (5-15); Carbon Dioxide 27 mmol/L (20-31); Chloride 101 mmol/L (98-107); Potassium 3.9 mmol/L (3.5-5.1); Sodium 136 mmol/L (136-145)
[2024-07-25 07:32] LABS: Calcium 9.8 mg/dL (8.7-10.4)
[2024-07-25 07:37] LABS: BUN/Creatinine Ratio 8.7 (10.0-20.0); Blood Urea Nitrogen 11 mg/dL (9-23); Glucose 104 mg/dL (74-106)
[2024-07-25 08:00] VITALS: PULSE 74; RESP 20; O2SAT 96
[2024-07-25 09:00] VITALS: BP 156/89; PULSE 74; RESP 20; TEMP 98; O2SAT 96
--- NOTE | 2024-07-26 06:53 | DVHDSRES ---
Discharge Summary Date of Admission Resident Creating Document: SRIRAM CARPENTER RESIDENT July 22, 2024 at 21:37 Date of Discharge: July 25, 2024 Admitting Diagnosis Intractable lower abdominal pain likely due to acute diverticulitis Acute diverticulitis Hepatic steatosis Leukocytosis likely due to diverticulitis Hypertension not on any medication Obesity Wounds: none Labs/Diagnostic Data: Laboratory Results Test 07/25/24 06:56 07/23/24 06:41 07/22/24 23:55 07/22/24 18:56 White Blood Count 7.0 10^3/uL (4.4-10.8) Red Blood Count 4.50 10^6/uL (4.5-5.90) Hemoglobin 14.1 g/dL (13.5-17.5) Hematocrit 40.8 % (41.0-53.0) Mean Corpuscular Volume 90.7 fL (80.0-100.0) Mean Corpuscular Hemoglobin 31.3 pg (28.0-32.0) Mean Corpuscular Hemoglobin Concent 34.5 g/dL (32.0-36.0) Red Cell Distribution Width 13.2 % (11.8-14.3) Platelet Count 187 10^3/uL (140-450) Mean Platelet Volume 6.7 fL (6.9-10.8) Neutrophils (%) (Auto) 73.3 % (37.0-80.0) Lymphocytes (%) (Auto) 16.0 % (10.0-50.0) Monocytes (%) (Auto) 7.3 % (0.0-12.0) Eosinophils (%) (Auto) 2.8 % (0.0-7.0) Basophils (%) (Auto) 0.6 % (0.0-2.0) Neutrophils # (Auto) 5.2 10 ^3/uL (1.6-8.6) Lymphocytes # (Auto) 1.1 10 ^3/uL (0.4-5.4) Monocytes # (Auto) 0.5 10 ^3/uL (0-1.3) Eosinophils # (Auto) 0.2 10 ^3/uL (0-0.8) Basophils # (Auto) 0 10 ^3/uL (0-0.2) Nucleated Red Blood Cells 0.1 % Sodium Level 136 mmol/L (136-145) Potassium Level 3.9 mmol/L (3.5-5.1) Chloride Level 101 mmol/L (98-107) Carbon Dioxide Level 27 mmol/L (20-31) Anion Gap 8 (5-15) Blood Urea Nitrogen 11 mg/dL (9-23) Creatinine 1.26 mg/dL (0.700-1.30) Glomerular Filtration Rate Calc 66 mL/min (>90) BUN/Creatinine Ratio 8.7 (10.0-20.0) Serum Glucose 104 mg/dL (74-106) Calcium Level 9.8 mg/dL (8.7-10.4) Total Bilirubin 0.9 mg/dL (0.2-1.0) Aspartate Amino Transferase (AST) 14 U/L (13-40) Alanine Aminotransferase (ALT) 23 U/L (7-40) Alkaline Phosphatase 78 U/L (46-116) Total Protein 6.5 g/dL (5.7-8.2) Albumin 4.2 g/dL (3.2-4.8) Urine Color Light-yellow (Yellow) Urine Clarity Clear (Clear) Urine pH 5.5 (5.0-9.0) Urine Specific [place] 1.023 (1.001-1.035) Urine Protein Negative (Negative) Urine Ketones Negative (Negative) Urine Blood Negative /uL (Negative) Urine Nitrite Negative (Negative) Urine Bilirubin Negative (Negative) Urine Urobilinogen Normal mg/dL (Negative) Urine Leukocyte Esterase Negative /uL (Negative) Urine RBC None seen /hpf (0 - 3) Urine Microscopic WBC < 1 /HPF (0-3) Urine Squamous Epithelial Cells None seen /hpf (<5) Urine Bacteria None seen /hpf (None Seen) Urine Mucus Few (None Seen) Urine Glucose Normal mg/dL (Normal) Urine Opiates Screen Pos (NEGATIVE) Urine Fentanyl Screen Neg (NEGATIVE) Urine Barbiturates Screen Neg (NEGATIVE) Urine Phencyclidine Screen Neg (NEGATIVE) Urine Amphetamines Screen Neg (NEGATIVE) Urine Benzodiazepines Screen Neg (NEGATIVE) Urine Cocaine Screen Neg (NEGATIVE) Urine Cannabinoids Screen Neg (NEGATIVE) Hemoglobin A1c 5.6 % A1C (<5.7) Lipase 33 U/L (12-53) Thyroid Stimulating Hormone (TSH) 2.21 uIU/mL (0.55-4.78) Other Laboratory Tests 07/25/24 06:56 Brief Hx & Hospital Course: Patient is 59 years old male with past medical history of hypertension, prediabetes, obesity came with a complaint of abdominal pain. As per patient patient started having abdominal pain 3:30 a.m. today, sudden onset, sharp, 10/10, radiating to the back, intermittent in nature, some decrease sudden movement. Patient also endorsed some nausea but no vomiting. Patient reported he had same kind of pain six-month before but which got better spontaneously with a 4-6 hours, did not seek any medical attention. Patient was endorsed some constipation but had a small bowel movement yesterday and also passing gas. Patient denied any dysuria, fever, diarrhea, vomiting, acute joint pain or swelling, unusual food arrival regular schedule. Initial lab workup revealed steatosis WBC 13.3, neutrophil 82.3, lipase with a normal limit,. HGB A1c 5.6, TSH 2.21. CT findings of hepatic steatosis 2. Findings of non complicated sigmoid diverticulitis. X-ray KUB-Nonobstructive bowel gas pattern. Past medical history: as per HPI Past Surgical History: none Social History: Patient lives with 2 sons, occasional alcoholic, denies smoking or drug abuse Home medications: patient hypertensive but it denied taking any med Brief hospital course Patient admitted to the hospital with a chief complaint of abdominal pain more in the left lower quadrant underwent CT abdomen pelvis without contrast which showed fat stranding in the sigmoid colon likely uncomplicated diverticulitis. Patient was started on full liquid diet and given laxatives and started on IV antibiotics and was given IV fluids. Patient also had hypotension for which he was not taking blood pressure medication at home and in the hospital was started on losartan. Patient still complaining of pain and was advised further stay in the hospital but he left against medical advice. Consults/Reason for consult none Operations or Procedures none Condition at Discharge: Undetermined Final Diagnosis/Problems List Intractable lower abdominal pain likely due to acute diverticulitis Acute uncomplicated diverticulitis Hepatic steatosis Leukocytosis likely due to diverticulitis Hypertensive heart disease Obesity Discharge Disposition: AMA Discharge Statement: "Patient was advised to return to the ER or call 911 if any headaches, dizziness, shortness of breath, chest pain, abdominal pain, bleeding, fevers, or worsening of medical condition. Patient was counseled about treatment plan, medications, possible side effects, patient�verbalized understanding. All questions were answered to the best of my ability. This discharge took greater then 30 minutes in planning, reviewing documentation, counseling the patient, and discussing with other team members." ASSESSMENT ASSESSMENT Assessment Date of Service: July 25, 2024 Billing Provider: KASIA SMITH MD Common Visit Codes: 06210-BMU/OBS DISCH DAY >30min SRIRAM CARPENTER RESIDENT July 26, 2024 06:53 KASIA SMITH MD July 26, 2024 14:20
== END 2024-07-25 09:40 | disposition left against medical advice (07) | DRG 244 ==
LOC: ER 18:09 → OVERFLOW 21:37 → WEST WING 21:39
PROVIDERS: ADMIT Student in an Organized Health Care Education/Training Program; ATTEND Emergency Medicine
DX: K57.32 Diverticulitis of large intestine without perforation or abscess without bleeding (principal); R65.10 Systemic inflammatory response syndrome (SIRS) of non-infectious origin without acute organ dysfunction; I11.9 Hypertensive heart disease without heart failure; K76.0 Fatty (change of) liver, not elsewhere classified; E66.9 Obesity, unspecified; F10.20 Alcohol dependence, uncomplicated; Z68.33 Body mass index [BMI] 33.0-33.9, adult; K59.00 Constipation, unspecified; Z53.29 Procedure and treatment not carried out because of patient's decision for other reasons; R73.03 Prediabetes; Z82.49 Family history of ischemic heart disease and other diseases of the circulatory system
CPT/HCPCS: 36415; 74018; 74176; 80048; 80053; 80307; 81001; 83036; 83690; 84443; 85025; 96361; 96374; 96375; G0378; J1885; J2405; J2470; J3490